=== PATIENT | male | born 1975 | race Caucasian/White ===

== ENCOUNTER 2019-07-27 18:27 | Observation (INO) ==
[2019-07-27] MEDS ORDERED: Aspirin 325 MG TABLET PO ONE (19:19)
[2019-07-27] MEDS ORDERED: Ipratropium/Albuterol Neb 3 ML IH ONE (19:19)
[2019-07-27] MEDS ORDERED: methylPREDNISolone 125 MG/2 ML VIAL IVP ONE (19:19)
[2019-07-27 19:58] LABS: Basophils # 0.1 K/mcL (0.0-0.2); Basophils % 0.9 %; Eosinophils # 0.2 K/mcL (0.0-0.6); Eosinophils % 3.4 %; Hematocrit 41.4 % (37.5-50.1); Hemoglobin 14.6 g/dL (12.9-16.9); Immature Granulocytes % 0.4 % (0-4); Lymphocytes # 1.9 K/mcL (0.6-4.6); Lymphocytes % 28.2 %; Mean Corpuscular HGB Conc 35.3 g/dL (31.6-35.5); Mean Corpuscular Hemoglobin 33.3 pg (28.0-33.3); Mean Corpuscular Volume 94.3 fL (83.0-100.0); Mean Platelet Volume 9.8 fL (9.4-12.4); Monocytes # 0.6 K/mcL (0.0-1.3); Monocytes % 8.9 %; Neutrophils # 3.9 K/mcL (1.6-8.9); Platelet Count 199 K/mcL (140-400); Red Blood Count 4.39 M/mcL (4.19-5.50); Red Cell Distribution Width 15.1 % (11.5-14.5); Segmented Neutrophils % 58.2 %; White Blood Count 6.7 K/mcL (4.3-11.1)
[2019-07-27 20:21] LABS: Albumin 4.6 g/dL (3.5-5.7); Albumin/Globulin Ratio 1.8 (1.1-2.2); Bilirubin,Direct 0.3 mg/dL (0.0-0.2); Bilirubin,Indirect 1.2 mg/dL (0.0-1.2); Bilirubin,Total 1.5 mg/dL (0.3-1.0); Globulin 2.5 g/dL (2.4-3.5); Total Protein 7.1 g/dL (6.4-8.9)
[2019-07-27 20:23] LABS: BUN/Creatinine Ratio 7 (6-26); Blood Urea Nitrogen 5 mg/dL (6-20); Calcium 9.1 mg/dL (8.6-10.3); Carbon Dioxide 24 mEq/L (23-29); Chloride 98 mEq/L (98-107); Glucose 164 mg/dL (70-105); Osmolality,Calculated 277 (280-300); Potassium 3.6 mEq/L (3.5-5.1); Sodium 133 mEq/L (136-145); Troponin I < 0.03 ng/mL (< 0.04); eGFR For African Americans > 60 (> 60); eGFR For Non-African Americans > 60 (> 60)
--- NOTE | 2019-07-27 20:58 | Emergency Department Note ---
Disposition Clinical Impression: Atypical chest pain, Wheezing, Encounter for smoking cessation counseling, Bronchitis, COPD (chronic obstructive pulmonary disease) with acute bronchitis Disposition: Admitted As Inpatient Condition: Fair Time of Disposition: 00:28 Chest Pain HPI - General Chief Complaint: ED Chest Pain Stated Complaint: chest pain,CRIS x 2weeks Time Seen by Provider: 07/27/19 19:03 Source: patient Mode of arrival: ambulatory Limitations: no limitations Vital Signs Reviewed: Yes Nursing Notes Reviewed: Yes - History of Present Illness HPI Narrative: 43-year-old male patient presents as part of her evaluation of shortness of breath. He also states he has intermittently over the last several weeks to months had chest pain. At times the chest pain has been substernal, other times it is radiating to his neck and down his arm. He does have a significant past history of smoking. Denies any fever or chills Other family history coronary artery disease. He denies any chest pain currently or today. He came in because he was still short of breath. He has been seen at the [facility] emergency room [facility] twice a last 3 days the last visit being yesterday. However, they wanted to admit him but he declined and left. He does get exertional dyspneic. Pt complaint: chest pain Pain Location: substernal Severity: mild Severity scale (1-10): 5 Quality: tightness, aching, heaviness Improves with: rest Worsens with: exertion Associated symptoms: Reports: nausea, dyspnea, cough (Occasionally). Denies: diaphoresis, sense of impending doom, palpitations, fever, leg swelling Treatments prior to arrival chest pain: none - Related Data Home Medications Medication Instructions Recorded Confirmed Folic Acid 1 mg PO DAILY 07/27/19 07/27/19 Pantoprazole Sodium 40 mg PO DAILY 07/27/19 07/27/19 Cetirizine HCl 10 mg PO DAILY 07/28/19 Metoprolol Succinate [Toprol Xl] 12.5 mg PO DAILY 07/28/19 Allergies Allergy/AdvReac Type Severity Reaction Status Date / Time hydrocodone [From Vicodin] Allergy See Verified 07/27/19 18:42 Comments All systems ED: reviewed and negative except as stated. Constitutional: Denies: fever, chills, weakness, weight change Eyes: Denies: eye pain, eye discharge, vision change ENT ED: Denies: ear pain, throat pain, dental pain, hearing loss, epistaxis, congestion, dysphagia Cardiovascular: Reports: chest pain, palpitations, dyspnea on exertion. Denies: edema, syncope Respiratory: Reports: dyspnea, wheezes. Denies: cough, hemoptysis, stridor Gastrointestinal: Denies: abdominal pain, nausea, vomiting, diarrhea, constipation, hematemesis, melena, hematochezia Genitourinary: Denies: urgency, dysuria, frequency, hematuria Musculoskeletal: Denies: back pain, neck pain, arthralgia, myalgia Integumentary: Denies: rash, abrasion, lesions Neurological: Denies: headache, weakness, numbness, paresthesias, confusion, abnormal gait, vertigo Psychiatric: Denies: anxiety, depression, suicidal thoughts, homicidal thoughts, auditory hallucinations, visual hallucinations Endocrine: Denies: fatigue Hematological/Lymphatic: Denies: easy bleeding, easy bruising Allergic/Immunologic: Denies: facial swelling, urticaria Chest Pain PMH - Past Medical History Medical history: Reports: GERD, hypertension Psychiatric history: Reports: no psych history - Social History Smoking Status: Current every day smoker Alcohol use: Reports: none, occasionally Physical Exam - General Limitations: no limitations General appearance: alert - Head Head exam: atraumatic, normocephalic, normal inspection - Eye Eye exam: Present: normal appearance, PERRL, EOMI - Expanded Eye Exam Pupils: Left: reactive - ENT ENT exam: normal exam, normal oropharynx, mucous membranes moist - Expanded ENT Exam External ear exam: Present: normal external inspection Mouth exam: Present: normal external inspection Teeth exam: Present: normal inspection Throat exam: Present: normal inspection - Neck Neck exam: Present: normal inspection, full ROM, trachea midline - Chest Chest inspection: Present: normal inspection, symmetric chest wall rise - Respiratory Respiratory exam: Present: wheezes (Bilateral specialist at the bases left greater than right). Absent: respiratory distress, stridor, accessory muscle use - Cardiovascular Cardiovascular exam: Present: regular rate, normal rhythm, normal heart sounds - Abdominal Exam Abdominal exam: Present: soft, Non-Tender. Absent: tenderness, distention, guarding, rebound, rigidity - Extremities Exam Extremities exam: Present: normal inspection, full ROM. Absent: tenderness, pedal edema - Expanded Upper Extremity Exam Shoulder exam: Present: normal inspection, full ROM Arm exam: Present: normal inspection, full ROM Elbow exam: Present: normal inspection, full ROM Forearm/Wrist exam: Present: normal inspection, full ROM Hand exam: Present: normal inspection, full ROM Vascular exam: Normal: capillary refill, radial pulse - Expanded Lower Extremity Exam Hip/Pelvis exam: Present: normal inspection, full ROM Upper leg exam: Present: normal inspection, full ROM Knee exam: Present: normal inspection, full ROM Lower leg exam: Present: normal inspection, full ROM Ankle exam: Present: normal inspection, full ROM Foot/toe exam: Present: normal inspection, full ROM Neurovascular/Tendon exam: Absent: motor deficit, sensory deficit, tendon deficit - Back Exam Back exam: Present: normal inspection, full ROM. Absent: tenderness - Neurological Exam Neurological exam: Present: alert, oriented X3 - Expanded Neurological Exam Patient oriented to: Present: person, place, time Coma Scale Eye Opening: Spontaneous Coma Scale Motor Response: Obeys Commands Coma Scale Verbal Response: Oriented Coma Scale Total: 15 - Psychiatric Psychiatric exam: Present: normal affect, normal mood - Skin Skin exam: Present: warm, dry, intact, normal color Course Course Narrative: Patient placed in examination room H&P obtained at nurse's notes reviewed Patient has been seen at the local facility 2 times the last 30 days. And last night was the second visit there. They wanted to admit him but he left. His biggest concern is shortness of breath is worse with exertion. He has a significant smoking history of approximately 60-90+ years smoking. As he began smoking at 10 with one pack or so per day and forearm several years smoking 3 packs per day and now is down to 1-2 packs per day. He has not smoked much today however. DuoNeb was ordered. Chest x-ray showed no acute infiltrate. I attempted to get old records from [facility] emergency room but this was not possible. Ther eduardo I did repeat a CTA of his chest no pulmonary embolism was noted. He did not have any chest pain here but did state that intermittently over the last few months has had substernal chest pain as well as chest pain that occasionally to his neck or down his arm. Sometimes it felt like there was a heaviness to his chest. Denies any history of coronary artery disease for him but states his parents did Patient was moving more air but wheezing had increased. Patient already had Solu-Medrol. Patient blood cultures 2 with [address] scan did not show any infiltrate or pulmonary embolism. Patient did have a repeat albuterol treatment. Vital Signs Temperature 98.1 F 07/27/19 18:47 Pulse Rate 70 07/27/19 18:47 Respiratory Rate 16 07/27/19 18:47 Blood Pressure 163/106 07/27/19 18:47 O2 Sat by Pulse Oximetry 96 07/27/19 18:47 Temperature 97.9 F 07/28/19 06:58 Pulse Rate 84 07/28/19 06:58 Respiratory Rate 20 07/28/19 06:58 Blood Pressure 147/83 07/28/19 06:58 O2 Sat by Pulse Oximetry 97 07/28/19 07:19 Oxygen Delivery Oxygen Delivery Nasal Cannula Chest Pain - MDM Narrative Medical decision making narrative: Prior to contacting the hospitalist. I did obtain an ABG and then turned down the oxygen but unfortunately, his oxygen saturation did decrease to 90-91% on room air. The oxygen was replaced at 2 L/m and his saturation improved. Patient will be admitted to the hospitalist service. I am concerned about under lying COPD and/or reactive airway disease. With his significant past history of smoking of almost 90 pack years I am favoring COPD but an echocardiogram may need to be performed to further evaluate for cardiac ischemia, cardiomyopathy - Medical Records Medical records reviewed: Yes I reviewed the patient's medical records. - Lab Data Lab results reviewed: Yes I reviewed the patient's lab results. Lab results narrative: Laboratory Tests 07/27/19 07/27/19 07/27/19 19:41 19:41 19:41 WBC 6.7 RBC 4.39 Hgb 14.6 Hct 41.4 MCV 94.3 MCH 33.3 MCHC 35.3 RDW 15.1 H Plt Count 199 MPV 9.8 Immature Gran % 0.4 Seg Neutrophils % 58.2 Lymphocytes % 28.2 Monocytes % 8.9 Eosinophils % 3.4 Basophils % 0.9 Neutrophils # 3.9 Lymphocytes # 1.9 Monocytes # 0.6 Eosinophils # 0.2 Basophils # 0.1 Sodium 133 L Potassium 3.6 Chloride 98 Carbon Dioxide 24 BUN 5 L Creatinine 0.70 Est GFR ( Amer) > 60 Est GFR (Non-Af Amer) > 60 BUN/Creatinine Ratio 7 Glucose 164 H Calculated Osmolality 277 L Calcium 9.1 Total Bilirubin 1.5 H Direct Bilirubin 0.3 H Indirect Bilirubin 1.2 AST 41 H ALT 38 Alkaline Phosphatase 51 Troponin I < 0.03 Serum Total Protein 7.1 Albumin 4.6 Globulin 2.5 Albumin/Globulin Ratio 1.8 Result diagrams: 07/28/19 04:20 07/28/19 04:20 Lab Results 07/27/19 07/27/19 07/27/19 Range/Units 19:41 19:41 19:41 WBC 6.7 (4.3-11.1) K/mcL RBC 4.39 (4.19-5.50) M/mcL Hgb 14.6 (12.9-16.9) g/dL Hct 41.4 (37.5-50.1) % MCV 94.3 (83.0-100.0) fL MCH 33.3 (28.0-33.3) pg MCHC 35.3 (31.6-35.5) g/dL RDW 15.1 H (11.5-14.5) % Plt Count 199 (140-400) K/mcL MPV 9.8 (9.4-12.4) fL Immature Gran % 0.4 (0-4) % Seg Neutrophils % 58.2 % Lymphocytes % 28.2 % Monocytes % 8.9 % Eosinophils % 3.4 % Basophils % 0.9 % Neutrophils # 3.9 (1.6-8.9) K/mcL Lymphocytes # 1.9 (0.6-4.6) K/mcL Monocytes # 0.6 (0.0-1.3) K/mcL Eosinophils # 0.2 (0.0-0.6) K/mcL Basophils # 0.1 (0.0-0.2) K/mcL Sample Site ABG pH (7.32-7.45) pH Units ABG pCO2 (35-45) mmHg ABG pO2 (85-104) mmHg ABG HCO3 (21-27) mEq/L ABG Total CO2 (20-26) mEq/L ABG O2 Saturation (95-98) % ABG Base Excess (-2 to 3) mEq/L Branden Test Inspired O2 (1-15=lpm [id number]=%) Sodium 133 L (136-145) mEq/L Potassium 3.6 (3.5-5.1) mEq/L Chloride 98 (98-107) mEq/L Carbon Dioxide 24 (23-29) mEq/L BUN 5 L (6-20) mg/dL Creatinine 0.70 (0.70-1.30) mg/dL Est GFR ( Amer) > 60 (> 60) Est GFR (Non-Af Amer) > 60 (> 60) BUN/Creatinine Ratio 7 (6-26) Glucose 164 H (70-105) mg/dL Calculated Osmolality 277 L (280-300) Calcium 9.1 (8.6-10.3) mg/dL Total Bilirubin 1.5 H (0.3-1.0) mg/dL Direct Bilirubin 0.3 H (0.0-0.2) mg/dL Indirect Bilirubin 1.2 (0.0-1.2) mg/dL AST 41 H (13-39) Units/L ALT 38 (7-52) Units/L Alkaline Phosphatase 51 (34-104) Units/L Troponin I < 0.03 (< 0.04) ng/mL Serum Total Protein 7.1 (6.4-8.9) g/dL Albumin 4.6 (3.5-5.7) g/dL Globulin 2.5 (2.4-3.5) g/dL Albumin/Globulin Ratio 1.8 (1.1-2.2) Ethyl Alcohol 68 H (Less than 10) mg/dL 07/27/19 Range/Units 22:03 WBC (4.3-11.1) K/mcL RBC (4.19-5.50) M/mcL Hgb (12.9-16.9) g/dL Hct (37.5-50.1) % MCV (83.0-100.0) fL MCH (28.0-33.3) pg MCHC (31.6-35.5) g/dL RDW (11.5-14.5) % Plt Count (140-400) K/mcL MPV (9.4-12.4) fL Immature Gran % (0-4) % Seg Neutrophils % % Lymphocytes % % Monocytes % % Eosinophils % % Basophils % % Neutrophils # (1.6-8.9) K/mcL Lymphocytes # (0.6-4.6) K/mcL Monocytes # (0.0-1.3) K/mcL Eosinophils # (0.0-0.6) K/mcL Basophils # (0.0-0.2) K/mcL Sample Site R Radial ABG pH 7.46 H (7.32-7.45) pH Units ABG pCO2 40 (35-45) mmHg ABG pO2 128 H (85-104) mmHg ABG HCO3 28 H (21-27) mEq/L ABG Total CO2 30 H (20-26) mEq/L ABG O2 Saturation 99 H (95-98) % ABG Base Excess 4 H (-2 to 3) mEq/L Branden Test Positive Inspired O2 21.0 (1-15=lpm cs27-430=%) Sodium (136-145) mEq/L Potassium (3.5-5.1) mEq/L Chloride (98-107) mEq/L Carbon Dioxide (23-29) mEq/L BUN (6-20) mg/dL Creatinine (0.70-1.30) mg/dL Est GFR ( Amer) (> 60) Est GFR (Non-Af Amer) (> 60) BUN/Creatinine Ratio (6-26) Glucose (70-105) mg/dL Calculated Osmolality (280-300) Calcium (8.6-10.3) mg/dL Total Bilirubin (0.3-1.0) mg/dL Direct Bilirubin (0.0-0.2) mg/dL Indirect Bilirubin (0.0-1.2) mg/dL AST (13-39) Units/L ALT (7-52) Units/L Alkaline Phosphatase (34-104) Units/L Troponin I (< 0.04) ng/mL Serum Total Protein (6.4-8.9) g/dL Albumin (3.5-5.7) g/dL Globulin (2.4-3.5) g/dL Albumin/Globulin Ratio (1.1-2.2) Ethyl Alcohol (Less than 10) mg/dL - Radiology Data Radiology results reviewed: Yes I reviewed the patient's radiology results. COMPARISON: Prior studies including most recent 04/20/2017 HISTORY: ORDERING SYSTEM PROVIDED HISTORY: chest pain Shortness of breath. Acute symptoms. Initial study. FINDINGS: No acute bony abnormality. The heart size and mediastinal contours are normal. The lungs are clear. XR/XR chest 1V portable IMPRESSION: Negative portable study. D/ / Radha Arora Cha, MD / Radha Arora Cha, MD Interpreting Provider: Radha Arora Cha, MD - EKG Data EKG attestation: Yes I reviewed and interpreted this EKG. EKG results narrative: EKG is reviewed and interpreted by me shows a normal sinus rhythm at 62 bpm, normal axis, normal [place] interval, interventricular conduction delay with QRS duration 108, no acute ST elevations. Heart Score - Score History: Slightly Suspicious EKG: Normal Age: 45-65 Risk Factors: 1-2 risk factors Troponin: Less than normal limit HEART Score Total: 2 Critical Care Time Critical Care Time: Yes Total Critical Care Time: 30 Attestation: The high probability of a clinically significant, sudden or life threatening deterioration of the patient's condition required my full and direct attention, intervention and personal management.
[2019-07-27] MEDS ORDERED: Isovue-370 500 ML BOTTLE IVP ONE (21:21)
[2019-07-27] MEDS ORDERED: Albuterol 2.5 MG/3 ML NEBULIZER IH ONE (21:29)
[2019-07-27 22:06] LABS: ABG Base Excess 4 mEq/L (-2 to 3); ABG HCO3 28 mEq/L (21-27); ABG Oxygen Saturation 99 % (95-98); ABG PCO2 40 mmHg (35-45); ABG PH 7.46 pH Units (7.32-7.45); ABG PO2 128 mmHg (85-104); ABG TCO2 30 mEq/L (20-26)
[2019-07-28] MEDS ORDERED: *HR* LORazepam 2 MG/ML VIAL IVP ONE (00:32)
[2019-07-28] MEDS ORDERED: cefTRIAXone 2,000 MG in 0.9 % Sodium Chloride Mini Bag 100 ML IVPB ONE (00:33)
[2019-07-28] MEDS ORDERED: *HR* LORazepam 1 MG TABLET PO PRN (03:43)
[2019-07-28] MEDS ORDERED: Nicotine 2 MG GUM BC PRN (03:43)
[2019-07-28] MEDS ORDERED: *HR* Dextrose 50 % in Water (Syg) 50 ML SYRINGE IVP PRN (03:43)
[2019-07-28] MEDS ORDERED: Aspirin 325 MG TABLET PO ONE (03:43)
[2019-07-28] MEDS ORDERED: Naloxone 0.4 MG/ML INJ IVP PRN (03:43)
[2019-07-28] MEDS ORDERED: Ondansetron ODT 4 MG TAB.RAPDIS SL PRN (03:43)
[2019-07-28] MEDS ORDERED: Dextrose Gel 15 GM/37.5 ML TUBE PO PRN ×2 (03:43)
[2019-07-28] MEDS ORDERED: Nitroglycerin 0.4 MG TAB.SUBL SL PRN (03:43)
[2019-07-28] MEDS ORDERED: D5% in Water 1,000 ML IVC PRN (03:43)
--- NOTE | 2019-07-28 03:59 | Internal Med History&Physical ---
Date of Encounter: 07/28/19 Time of Encounter: 03:54 Internal Medicine - H&P: HPI Chief complaint: chest pain Admitted From: Home History of present illness: Mr. Dickerson is a 43 year old male with past medical history of chronic alcohol abuse, cigarette smoker 30+ pack years of smoking, hypertension, hyperlipidemia presented to the ED for chest pain. [id number] encounter occurred at 3:20 AM. The patient reported chest pain since June 20 and shortness of breath has been following up with PCP and have had multiple admissions at [facility]. Patient chest pain reported to be left side rating, left arm left jaw sharp pressure(elephant standing) rated 6/10 alleviated with rest exacerbated with exertion. Patient reported constant pressure with sharp pain occurring mostly with exertion associated with nausea, chills and shortness of breath. Patient denied dull pain dysuria, dysphagia,or change in bowel. Patient denied recent history of stress test or cardiac catheterization. Patient stress test was ordered in August 11 but due to severity of the pain could not wait. Personally reviewed patient's past medical, surgical, family and social history. Significant for mother and father pulmonary embolisms, and father heart dis ease. No recent surgeries, or allergies to medications. Patient continues to drink on 15 beers per day with last reading being at 9 AM yesterday. Patient otherwise is independent with his bowels and is self-employed. CODE STATUS was discussed and the patient proceed with a full code. Past Med Surg Social Fam HX - Past Medical History Medical history: GERD, hypertension Psychiatric history: no psych history - Past Surgical History Additional surgical history: tear in stomach, clips in place - Social History Smoking Status: Current every day smoker Packs per day: 1 Smokeless Tobacco Status: Yes Alcohol use: heavy - Family History Mother Living Status: Hx Family Cardiac Disorders: Yes Hx Family Neurologic Disorders: Yes Internal Medicine - H&P: Meds Folic Acid 1 mg PO DAILY 07/27/19 [History] Metoprolol [Lopressor] 25 mg PO DAILY 07/27/19 [History] Pantoprazole Sodium 40 mg PO DAILY 07/27/19 [History] Allergy/AdvReac Type Severity Reaction Status Date / Time acetaminophen [From Vicodin] Allergy See Verified 07/27/19 18:42 Comments hydrocodone [From Vicodin] Allergy See Verified 07/27/19 18:42 Comments All Systems PM: A 10-system review of systems was performed and is negative for pertinent findings except as documented above in the HPI. Review of systems: General: No unintentional weightloss, No fever, No night sweats. Head: No headahce, No injury. Ears: No discharge, No earache Eyes: No drainage, No eye pain Mouth and Throat: No new ulcers, No pain Nose and Sinus: No new congestion, No pain, Respiratory: No cough, No sputum production, No dyspnea Cardiovascular: + chest pain, No palpitations. Gastrointestinal: + nausea, No vomiting. No abdominal pain Genital Tract: No discharge, No pain Urinary Tract: No dysuria, No discharge. MSK: No new/worsening joint pain or new/worsening muscle ache. Endocrine: No cold intolerance, No polyuria Psychological: No suicidal, No homocidal ideation. - Constitutional Vitals: Temp Pulse Resp BP Pulse Ox 98.7 F 80 16 144/89 97 07/28/19 02:37 07/28/19 02:37 07/28/19 02:37 07/28/19 02:37 07/28/19 02:37 Exam: General Appearance: Appearing as age, well-nourished in moderate acute distress. Head: Atraumatic normocephalic Skin: Normal texture, normal turgor, warm, dry. Eyes: Conjunctivae not pale with no erythema, drainage, or ulcers. Anicteric. Neck: No Lymphadenopathy in the anterior/posterior cervical chain. No thyromegaly, masses or ulcers. Trachea midline. Heart: RRR, no murmurs. Capillary refill 3 seconds Lungs: No accessory muscle usage, lungs clear to auscultation bilaterally, no wheezes or crackles. Extremities: No pitting edema, clubbing, cyanosis, or ulcers. Abdomen: Non-distended, normoactive bowel sounds. non-tender to palpation, no hepatomegally. No guarding. Neuro: AOx3 with no new sensory loss or focal deficits. MSK: Strength 5/5 Upper extremity equal bilaterally. Strength 5/5 Lower extremity equal bilaterally Internal Med - H&P Results - Labs CBC & Chem 7: 07/27/19 19:41 07/27/19 19:41 Labs: Short CBC 07/27/19 Range/Units 19:41 WBC 6.7 (4.3-11.1) K/mcL Hgb 14.6 (12.9-16.9) g/dL Hct 41.4 (37.5-50.1) % Plt Count 199 (140-400) K/mcL Neutrophils # 3.9 (1.6-8.9) K/mcL BMP 07/27/19 19:41 Sodium 133 L Potassium 3.6 Chloride 98 Carbon Dioxide 24 BUN 5 L Creatinine 0.70 Glucose 164 H Calcium 9.1 Cardiac Enzymes 07/27/19 Range/Units 19:41 Troponin I < 0.03 (< 0.04) ng/mL Liver Function 07/27/19 Range/Units 19:41 Total Bilirubin 1.5 H (0.3-1.0) mg/dL Direct Bilirubin 0.3 H (0.0-0.2) mg/dL AST 41 H (13-39) Units/L ALT 38 (7-52) Units/L Alkaline Phosphatase 51 (34-104) Units/L Albumin 4.6 (3.5-5.7) g/dL - ABG Interpretation ABG results: 07/27/19 22:03 ABG pH 7.46 H ABG pCO2 40 ABG pO2 128 H ABG HCO3 28 H ABG Total CO2 30 H ABG O2 Saturation 99 H ABG Base Excess 4 H - Impressions ITS Impressions Chest X-Ray 07/27/19 19:02 IMPRESSION: Negative portable study. D/ / Radha Arora Cha, MD / Radha Arora Cha, MD Interpreting Provider: Radha Arora Cha, MD Chest CTA 07/27/19 21:21 IMPRESSION: No evidence of pulmonary embolism or acute pulmonary abnormality. D/ / Javier Najera / Javier Najera Interpreting Provider: Javier Najera - Summary of Assessment and Plan Summary of Assessment and Plan: 1. Atypical Chest pain: 2/3(Substernal/Alleviated with rest/Worsened with exertion) RUFINA Score:2 My interpretation of EKG normal sinus rhythm with incomplete left bundle branch block BB, Nitro, high intensity statin, Oxygen, ASA. Stress Test: Nuclear Stress Test Troponin, EKG, Cardiac monitoring. 2.Acute dyspnea: My review of CTA showed no acute PE, CXR showing no acute process. suspected DEEPA with elevated STOP bang would benefit from outpatient polysomnography. 3.Hyperglycemia, A1c ordered. Insulin sliding scale. 4.Alcohol abuse: [facility] protocol ordered 5. Cigarette smoker: Nicotine patch ordered 6.Euvolemic Hyponatremia: urine studies orderred. Likely etoh related DVT prophylaxis: Heparin Disposition: Likely less than 2 days stay - Time Spent With Patient Total time spent is greater than 36 minutes 50% in coordination of care (as documented) at patient's floor/unit and/or counseling patient: Greater than 35 minutes
[2019-07-28] MEDS ORDERED: *HR* LORazepam 2 MG/ML VIAL IVP PRN ×3 (04:18)
[2019-07-28 04:38] LABS: Hematocrit 44.4 % (37.5-50.1); Hemoglobin 15.3 g/dL (12.9-16.9); Immature Granulocytes % 0.2 % (0-4); Lymphocytes # 0.4 K/mcL (0.6-4.6); Lymphocytes % 6.5 %; Mean Corpuscular HGB Conc 34.5 g/dL (31.6-35.5); Mean Corpuscular Hemoglobin 32.9 pg (28.0-33.3); Mean Corpuscular Volume 95.5 fL (83.0-100.0); Mean Platelet Volume 10.1 fL (9.4-12.4); Monocytes # 0.1 K/mcL (0.0-1.3); Monocytes % 0.9 %; Neutrophils # 5.1 K/mcL (1.6-8.9); Platelet Count 202 K/mcL (140-400); Red Blood Count 4.65 M/mcL (4.19-5.50); Segmented Neutrophils % 92.4 %; White Blood Count 5.6 K/mcL (4.3-11.1)
[2019-07-28 04:58] LABS: Alanine Aminotransferase 36 Units/L (7-52); Albumin 4.6 g/dL (3.5-5.7); Albumin/Globulin Ratio 1.5 (1.1-2.2); Alkaline Phosphatase 48 Units/L (34-104); Aspartate Amino Transferase 32 Units/L (13-39); BUN/Creatinine Ratio 10 (6-26); Bilirubin,Total 1.9 mg/dL (0.3-1.0); Blood Urea Nitrogen 7 mg/dL (6-20); Calcium 9.4 mg/dL (8.6-10.3); Carbon Dioxide 23 mEq/L (23-29); Chloride 97 mEq/L (98-107); Chol/HDL Ratio 1.8 (0-4.9); Cholesterol 198 mg/dL (< 200); Glucose 169 mg/dL (70-105); HDL Cholesterol 109 mg/dL (40-59); LDL Cholesterol,Calculated 83 mg/dL (0-99); Magnesium 1.6 mg/dL (1.6-2.6); Osmolality,Calculated 280 (280-300); Phosphorous 4.1 mg/dL (2.7-4.5); Sodium 134 mEq/L (136-145); Total Protein 7.6 g/dL (6.4-8.9); Triglycerides 28 mg/dL (< 150); eGFR For African Americans > 60 (> 60); eGFR For Non-African Americans > 60 (> 60)
[2019-07-28 05:06] LABS: Estimated Average Glucose 146 mg/dl
[2019-07-28 05:31] LABS: Troponin I < 0.03 ng/mL (< 0.04)
[2019-07-28 05:38] LABS: INR 1.3; Prothrombin Time 14.3 Seconds (9.4-12.1)
[2019-07-28] MEDS ORDERED: Regadenoson 0.4 MG/5 ML SYRINGE IVP ONE (06:10)
[2019-07-28] MEDS: Insulin LISPRO 300 UNITS/3 ML VIAL SQ SCH ×2 (07:18→12:20)
[2019-07-28] MEDS ORDERED: Metoprolol XL (24 HR) Succ 25 MG TAB.ER.24H PO SCH (09:00)
[2019-07-28] MEDS ORDERED: Folic Acid 1 MG TABLET PO SCH (09:00)
[2019-07-28] MEDS ORDERED: Nicotine 21 MG PATCH.TD24 TD SCH (09:00)
--- NOTE | 2019-07-28 13:44 | Discharge Summary ---
Orders not resulted at time of discharge: Pending orders 07/28/19 04:00 Urinalysis reflex Microscopic [URIN] AM 0400 Date of Encounter: 07/28/19 Time of Encounter: 13:40 - Discharge Diagnosis (1) Diabetes Priority: Secondary Status: Chronic Qualifiers: Diabetes mellitus type: type 2 Diabetes mellitus complication status: without complication Qualified Code(s): E11.9 - Type 2 diabetes mellitus without complications (2) HTN (hypertension) Priority: Secondary Status: Chronic Qualifiers: Hypertension type: unspecified Qualified Code(s): I10 - Essential (primary) hypertension (3) Alcohol abuse Priority: Secondary Status: Chronic (4) Atypical chest pain Priority: Secondary Status: Resolved Hospital course: Mr. Dickerson is a 43 year old male past medical history of chronic alcohol abuse, cigarette smoker 30+ pack years of smoking, hypertension, hyperlipidemia presented to the ED for chest pain. Patient admitted to the hospital due to chest pain r/o. Patient underwent a stress test: negative for ischemia, estimated LVEF of 63%, serial trops negative. CTA of the chest: No evidence of pulmonary embolism or acute pulmonary abnormality. Patient reported alcohol abuse, started on CIWA protocol. during this admission patient did not require any ativan. Patient A1c 6.7%, patient reported he would like to try some diet changed before taking medications, recommended to follow up with his PCP. Hemodynamically stable to be discharged home. - Time Spent with Patient Total time spent providing and/or coordinating discharge services: Time spent: Greater than 30 minutes (35), D/C greater than 8 hours after Admission - Discharge Medications Prescriptions: New Atorvastatin [Lipitor] 40 mg PO HS 30 Days #30 tablet Nitroglycerin 0.4 mg SL Q5MPRN PRN 30 Days #30 tab.subl PRN Reason: Chest Pain Metoprolol XL (24 HR) Succ [Toprol Xl] 12.5 mg PO DAILY 30 Days #30 tab.er.24h Continued Folic Acid 1 mg PO DAILY Pantoprazole Sodium 40 mg PO BID Cetirizine HCl 10 mg PO DAILY Discontinued Metoprolol Succinate [Toprol Xl] 25 mg PO DAILY Home Medications: Folic Acid 1 mg PO DAILY 07/27/19 [History] Pantoprazole Sodium 40 mg PO BID 07/27/19 [History] Atorvastatin [Lipitor] 40 mg PO HS 30 Days #30 tablet 07/28/19 [Rx] Cetirizine HCl 10 mg PO DAILY 07/28/19 [History] Metoprolol XL (24 HR) Succ [Toprol Xl] 12.5 mg PO DAILY 30 Days #30 tab.er.24h 07/28/19 [Rx] Nitroglycerin 0.4 mg SL Q5MPRN PRN 30 Days #30 tab.subl 07/28/19 [Rx] Allergies/Adverse Reactions: Allergy/AdvReac Type Severity Reaction Status Date / Time hydrocodone [From Vicodin] Allergy See Verified 07/27/19 18:42 Comments Date of admission: 07/28/19 01:07 Primary care physician: PCP NONE - Constitutional Vitals: Temp Pulse Resp BP Pulse Ox 98.2 F 76 16 141/89 98 07/28/19 12:07 07/28/19 12:07 07/28/19 12:07 07/28/19 12:07 07/28/19 12:07 Exam: Vitals: Reviewed General: Alert and oriented x4. In no distress Cardiovascular: RRR, normal S1 & S2, no rubs, murmurs or gallops. Lungs: CTA b/l, no wheezes or crackles. Abdomen: Soft, non-tender, no rigidity. Extremities: No deformity, no edema or tenderness, no joint swelling or clubbing. Neurological: Normal cognition and motor skills. Rest of the physical exam is non contributory - Patient Status Disposition: Home, Self-Care Condition: Good Functional capacity at discharge: independent ambulation Overall status at discharge: patient is back to baseline - Discharge Instructions Follow Up With: NONE,PCP [Primary Care Provider] - - Diet and Activity Activity: resume usual activities as tolerated Diet: diabetic diet
[2019-07-28 15:46] VITALS: BP 147/92
--- NOTE | 2019-07-31 08:51 | Electrocardiograph Report ---
[place] [id number] Test Date: 2019-07-27 Pat Name: Sonny Dickerson Department: 104 Room: [facility] Gender: M Legal Technician: : [id number] Requested By: Jose Alberto Kmi Order Number: [id number] Reading MD: Alex Chaudhari Measurements Intervals [place] Rate: 62 P: 11 ND: 148 QRS: 61 QRSD: 108 T: 57 QT: 402 QTc: 407 Interpretive Statements SINUS RHYTHM INCOMPLETE RIGHT BUNDLE BRANCH BLOCK Electronically Signed On 07-31-2019 8:50:33 EDT by Alex Chaudhari
== END 2019-07-28 16:28 | disposition home or self-care (01) ==
LOC: 2ANU 18:27 → EMEROOARM 18:27 → 2ANU 07-28 02:33
PROVIDERS: ADMIT Family Medicine; ATTEND Family Medicine